=== PATIENT | female | born 1950 | race Caucasian/White ===

== ENCOUNTER → 2020-01-06 | Outpatient (CLI) | payer MEDICARE | LOC: CARD 09:49 | PROVIDERS: ATTEND Internal Medicine Interventional Cardiology | DX: R07.2 Precordial pain (principal); E78.01 Familial hypercholesterolemia; I10 Essential (primary) hypertension; E11.9 Type 2 diabetes mellitus without complications; Z72.0 Tobacco use | CPT/HCPCS: 93306 ==

== ENCOUNTER → 2020-01-12 | Outpatient (CLI) | payer MEDICARE ==
[~2020-01-12] VITALS: Ht 168 cm; Wt 73.0 kg
[~2020-01-12] MED LIST: CATHETER FLUSH 10 ML SYR IV PRN; REGADENOSON 0.4 MG/5 ML SYR (LEXISCAN) IV ONE
[2020-01-13 16:28] VITALS: BP 151/70
--- NOTE | 2020-01-13 16:28 | Cardiology Stress Test Report ---
Stress Test Report Type of NM Stress Test: Test Type: LEXISCAN 0.4MG/5ML Date of Procedure/Referring: Date of Procedure: January 12, 2020 PCP Phyllis Strange MD Admitting Physician Nikki Nieto MD Indications: Chest pain, diabetes Baseline Heart Rate: 53 Baseline Blood Pressure: Blood Pressure Systolic: 151 Blood Pressure Diastolic: 70 Baseline EKG: Baseline EKG: Sinus rhythm Summary & Conclusion: Summary: The patient was brought to the stress lab after informed consent was taken. Stress test was performed according to the Lexiscan protocol. 0.4 mg of IV Lexiscan was given. Low-grade exercise was performed. Baseline EKG showed sinus rhythm at 53 BPM, blood pressure 151/70 mmHg. Patient did not have any chest pain, arrhythmias or ST segment changes during the stress test. 10.83 mCi of Myoview were given for rest imaging and 30.3 mCi of Myoview given for stress imaging. Transient ischemic dilatation score 1.03, EF 71 percent. Normal wall motion. Normal myocardial perfusion imaging during rest and stress. Conclusion: Pharmacological stress test was negative for ischemia. Normal LV function with no wall motion abnormalities. Normal myocardial perfusion imaging during rest and stress. Phyllis STRANGE MD January 13, 2020 16:28
== END ==
LOC: CARD 08:01 → EDUNIT# 08:30
PROVIDERS: ATTEND Internal Medicine Interventional Cardiology
DX: R07.2 Precordial pain (principal); E78.01 Familial hypercholesterolemia; I10 Essential (primary) hypertension; E11.9 Type 2 diabetes mellitus without complications; Z72.0 Tobacco use
CPT/HCPCS: 78452; 93017

== ENCOUNTER → 2022-05-23 | Outpatient (CLI) | payer MEDICARE | LOC: CARD 11:22 | PROVIDERS: ATTEND Internal Medicine Cardiovascular Disease | DX: I35.0 Nonrheumatic aortic (valve) stenosis (principal); I11.9 Hypertensive heart disease without heart failure; I25.10 Atherosclerotic heart disease of native coronary artery without angina pectoris; I49.9 Cardiac arrhythmia, unspecified | CPT/HCPCS: 93225; 93226; 93306 ==

== ENCOUNTER 2022-07-02 11:00 | Day surgery (SDC) | payer MEDICARE ==
[~2022-07-02] VITALS: Ht 167.6 cm; Wt 75.5 kg
[2022-07-02] VITALS (14 sets, daily range): BP systolic 155–217; BP diastolic 74–118
[2022-07-02 09:34] LABS: HEMATOCRIT 31 % (35-52); HEMOGLOBIN 10.5 g/dL (11.5-16.0); MEAN CORPUSCULAR HEMOGLOBIN 32 pg (25-34); MEAN CORPUSCULAR HGB CONC 34 g/dL (32-36); MEAN CORPUSCULAR VOLUME 93 fL (80-99); MEAN PLATELET VOLUME 9.7 fL (9.0-12.2); PLATELET COUNT 250 10^3/uL (130-400)
[2022-07-02 09:46] LABS: PROTHROMBIN TIME PATIENT 13.4 SEC (12.2-14.7)
[2022-07-02 09:50] LABS: ALBUMIN 3.4 GM/DL (3.2-4.5); BILIRUBIN,TOTAL 0.7 MG/DL (0.1-1.0); CALCIUM 9.3 MG/DL (8.5-10.1); CREATININE SERUM 1.91 MG/DL (0.60-1.30); POTASSIUM 4.6 MMOL/L (3.6-5.0); TOTAL PROTEIN 6.6 GM/DL (6.4-8.2)
--- NOTE | 2022-07-02 09:50 | Diagnostic Imaging Report ---
INDICATION: Sick sinus syndrome, pre-pacemaker placement. Frontal chest obtained at 09:31 a.m. FINDINGS: Heart is borderline in size. Mediastinal silhouette is unremarkable. There is some linear scarring or atelectasis in the left upper lobe. Lungs are otherwise clear. There is no pneumothorax or pleural fluid. IMPRESSION: Borderline heart size. There is some linear scarring or atelectasis in left upper lobe. There is no other significant finding. Dictated by: Dictated on workstation # [id number]
--- NOTE | 2022-07-02 09:51 | Cardiac Procedure Note-CS/ASA ---
Pre-Procedure Note Pre-Op Procedure Note Date of Available H&P: Jun 23, 2022 Date H&P Reviewed: Jul 02, 2022 Time H&P Reviewed: :30 History & Physical: H&P Reviewed, Patient Examed, No changes noted Pre-Operative Diagnosis: Sinus node dysfunction Conscious Sedation Pre-Proced Time 09:30 ASA Score 3 For ASA 3 and 4: Consider anesthesia and medical clearance. Also, for patients with a history of failed moderate sedation consider anesthesia. Airway Lungs Heart ASA score ASA 1: a normal healthy patient ASA 2: a patient with a mild systemic disease (mid diabetes, controlled hypertension, obesity ASA 3: a patient with a severe systemic disease that limits activity (angina, COPD, prior Myocardial infarction) ASA 4: a patient with an incapacitating disease that is a constant threat to life (CHF, renal failure) ASA 5: a moribund patient not expected to survive 24 hrs. (ruptured aneurysm) ASA 6: a declared brain- patient whose organs are being harvested. For emergent operations, add the letter E after the classification Mallampati Classification Grade 3 Sedation Plan Analgesia, Amnesia, Plan communicated to team members, Discussed options with patient/fam, Discussed risks with patient/fam The patient is an appropriate candidate to undergo the planned procedure, sedation, and anesthesia. The patient immediately re-assessed prior to indication. DEZ LONG MD Jul 02, 2022 09:51
[~2022-07-02 11:00] MED LIST changes: +A/C/1TAB3 PO; +BIOT10005 PO; +CALC-250 PO; -CATHETER FLUSH 10 ML SYR IV PRN; +FERR-84 PO; +FOLI0.8T4 PO; +HEParin (CATH LAB) 1,000 ML IV ONE; +HYDR100T27 PO; +INSU100I34 SQ; +KRIL500C PO; +LACT1CAP39 PO; +LIDOCAINE 1% INJ 30 ML (XYLOCAINE) VIAL ONE; +LORA-404 PO; +MELA1TAB20 PO; +NORMAL SALINE 250 ML ONE; +NS IV 1000 ML 1,000 ML IV ONE; +NS IV 1000 ML 2,000 ML ONE; +PREN-37 PO; -REGADENOSON 0.4 MG/5 ML SYR (LEXISCAN) IV ONE; +SIMV40TA25 PO; +VANCOMYCIN 1000 MG/VIAL ONE; +VANCOMYCIN INJECTION 1,000 MG in NS (IVPB) 250 ML IV ONE
[2022-07-02] MEDS ORDERED: fentaNYL INJ 100 MCG/2 ML AMP ONE ×2 (11:06→12:22)
[2022-07-02] MEDS ORDERED: MIDAZOLAM 5 MG/5 ML (VERSED) VIAL ONE (11:06)
[2022-07-02] MEDS ORDERED: MIDAZOLAM 2 MG/2 ML (VERSED) VIAL ONE ×2 (12:23→12:36)
[2022-07-02] MEDS ORDERED: LIDOCAINE 1% INJ 20 ML VIAL ONE (12:23)
[2022-07-02] MEDS ORDERED: PATIENT MAY USE OWN MEDS, ALL PO SCH (13:30)
[2022-07-02] MEDS ORDERED: NS IV 1000 ML 1,000 ML IV SCH (13:30)
--- NOTE | 2022-07-02 13:35 | Permanent Pacemaker Implant ---
Dual Chamber Pacemaker Implant PROCEDURE PHYSICIAN: Dez Dean DUAL CHAMBER PACEMAKER IMPLANTATION: DATE OF PROCEDURE: 07/02/22 PREOPERATIVE DIAGNOSIS: Syncope, sinus node dysfunction POSTOPERATIVE DIAGNOSIS: Syncope, sinus node dysfunction HISTORY: 72-year-old lady with history of syncope, had heart monitor showing multiple pauses with syncope. Has underlying sinus node dysfunction. dual-chamber permanent pacemaker was recommended. PROCEDURE PERFORMED: 1. Dual-chamber permanent pacemaker implantation. 2. Fluoroscopy. 3. Central venous access. ANESTHESIA: Local anesthesia, conscious sedation. COMPLICATIONS: None. ESTIMATED BLOOD LOSS:20 mL. SPECIMENS: None. ORAL ANTICOAGULATION: None. FLUOROSCOPY TIME: FLUOROSCOPY DOSE: CONTRAST DOSE: PROCEDURE DETAILS: The patient is a 72 female and after all of the patients questions were answered, the patient was brought to the EP Lab. The patient's left chest was prepped and draped in sterile fashion. A 2 inch horizontal incision was made 1 cm below the clavicle and dissection carried down to the pectoralis fascia. Using the modified Seldinger technique and under fluoroscopy guidance, the anterior aspect of the left axillary vein was accessed 2 times. The J wires were secured to the drapes with a mosquito clamp. A 7-Urdu sheath was introduced over one of the J-wires. The RV lead was then inserted. The RV lead was directed across the tricuspid valve to the apical septal portion of the right ventricle. The position was checked in LITHUANIAN and SPANN views. The screw was deployed and the lead connected to the applications programmer analyst. Close sensing and pacing thresholds were obtained. Diaphragmatic pacing was ruled out. The lead was secured with 2-0 silk ties to the underlying muscle and fascia. Next, a 7-Urdu sheath was introduced through the remaining J-wire. An atrial lead was then introduced and guided to the level of the right appendage. The screw was deployed and the lead was connected to the interrogator. Good sensing and pacing thresholds were obtained. Diaphragmatic pacing was ruled out. The leads were secured with 2-0 silk ties to the underlying muscle and fascia. The leads were connected to the device in a hermetic fashion. The device and leads were placed in the pocket. Aggressive irrigation with saline solution was done. The device was secured to the underlying muscle and fascia with a 2-0 silk tie. interrogation of the device revealed good integrity of all the leads with good connections The wound was then closed using 2 layers. The first layer was interrupted 2-0 absorbable Vicryl suture. The last layer was a single subcuticular layer with 4- 0 Vicryl suture. Half inch Steri-Strips and a small dressing were then applied to the wound. The patient tolerated the procedure well and was returned to the recovery room in stable condition with stable vital signs. DEVICE INFORMATION: BANDAR XT DR MRI SERIAL [id number] RA LEAD: [id number] RV LEAD: [id number] PER-OPERATIVE DEVICE INTERROGATION: Good sensing and capture IMMEDIATE POSTOPERATIVE DEVICE INTERROGATION: Right atrium, bipolar, threshold 1 ms at 2 V, impedance 456, P wave 1.5 mV Right ventricle bipolar, threshold 0.4 ms at 2 V impedance 770, R waves 5 mV Post implant Atrial lead P wave 1.5 mV, impedance 418, pacing threshold 1.75 at 0.5 ms Right ventricle R wave 5 mV, pacing impedance 646, pacing threshold 2 A0.4 ms PLAN: The patient transferred to the ICU. We will continue with two more doses of IV antibiotics. We will check a chest x-ray and interrogate the device in the morning. The patient will continue on oral antibiotics for 5 days. CONCLUSION: Successful implantation of dual-chamber pacemaker with no complication FINAL DIAGNOSIS: Sinus node dysfunction Syncope Bradycardia Hypertension DEZ DEAN MD Jul 02, 2022 13:35
[2022-07-02] MEDS ORDERED: LORazepam 0.5 MG (ATIVAN) TABLET PO PRN (13:45)
[2022-07-02] MEDS ORDERED: meTOprolol 5 MG/5 ML (LOPRESSOR) VIAL ONE (13:49)
[2022-07-02] MEDS ORDERED: ceFAZolin INJECTION 1,000 MG in NS (IVPB) 50 ML IV SCH (15:30)
[2022-07-02] MEDS: HYDRALAZINE 50 MG TABLET PO SCH ×2 (16:01→20:02)
--- NOTE | 2022-07-02 16:33 | Diagnostic Imaging Report ---
INDICATION: Status post pacemaker placement. COMPARISON: 07/02/2022. FINDINGS: Single frontal radiographic view of the chest was obtained and demonstrates a stable cardiac silhouette. The pulmonary vasculature is now slightly prominent. The pulmonary interstitium is also slightly diffusely prominent. There may be trace right basilar effusion. No pneumothorax is seen on either side. A left-sided dual lead pacemaker is now present. Osseous structures show no acute abnormalities. IMPRESSION: 1. New left-sided dual-lead pacemaker. No pneumothorax. 2. Mild vascular congestion with probable interstitial pulmonary edema and small right basilar effusion. Dictated by: Dictated on workstation # [id number]
[2022-07-02] MEDS: oxyCODONE/APAP 5/325MG (PERCOCET 5) TABLET PO PRN (16:36)
[2022-07-02] MEDS ORDERED: meTOprolol 5 MG/5 ML (LOPRESSOR) VIAL IV NR (18:30)
[2022-07-02] MEDS: amLODIPine 5 MG (NORVASC) TAB PO SCH (18:37)
[2022-07-02] MEDS ORDERED: SIMVASTATIN 40 MG TABLET PO SCH (21:00)
[2022-07-02] MEDS ORDERED: BASAGLAR 100 UNIT/ML SQ SCH (21:00)
[2022-07-02] MEDS ORDERED: KRILL OIL PO SCH (21:00)
[2022-07-03] VITALS: BP 171/72
[2022-07-03] MEDS: oxyCODONE/APAP 5/325MG (PERCOCET 5) TABLET PO PRN ×2 (01:53→07:56)
[2022-07-03 04:00] VITALS: BP 150/73
[2022-07-03] MEDS ORDERED: ATOR20TA49 PO (07:20)
[2022-07-03] MEDS ORDERED: AMLO-250 PO (07:20)
--- NOTE | 2022-07-03 07:21 | Discharge Inst-Post CATH ---
Discharge Inst-CATH/EP Problems Reviewed?: Yes Post Cardiac Cath/EP D/C Inst Follow Up/Plan Appointment with Dr Dean next week <b>CARDIAC CATH/EP PROCEDURE DISCHARGE INSTRUCTIONS</b> ACTIVITY * Go Home directly and rest. * Limit activity of the leg (or wrist if it was used) for 7 days including aerobics, swimming, jogging, bicycling, etc. * Restrict stair-climbing for 7 days if possible, if not, climb up with your non-cath leg, then bring together on the same step. * Avoid lifting, pushing, pulling or excessive movement of the affected extremity for 7 days. * Customary sexual activity may be resumed after 2 days-use caution not to use a position that strains or causes pain to the affected extremity. * No driving for 24 hours. * NO SMOKING. * Avoid straining for bowel movements for 7 days. * Gentle walking on level ground is allowed. * Returning to work will depend on the type of procedure and the results. Your doctor will discuss this with you. CALL YOUR DOCTOR FOR ANY OF THE FOLLOWING: *If bleeding from the puncture site occurs- Apply gentle pressure to site with clean cloth and call your doctor or EMS. * If a knot or lump forms under the skin, increases in size, or causes pain. * If bruising appears to be worsening or moving further down your leg instead of disappearing. * Temperature above 101 F. CARE OF YOUR GROIN INCISION; * Bruising or purple discoloration of the skin near the puncture site is common. * You may shower only, no bathtub bathing for 5 days. Be careful to avoid slipping as your leg may feel stiff. * If a closure device was used on your femoral artery, please see the attached guide regarding care of the device and your leg. * Leave dressing on FOR 24 hours. CARE OF YOUR WRIST INCISION; * Bruising or purple discoloration of the skin near the puncture site is common. * You may shower. * DO NOT submerge wrist. * Leave dressing on FOR 24 hours. DEZ DEAN MD Jul 03, 2022 07:21
[2022-07-03 07:25] VITALS: BP 149/67
[2022-07-03] MEDS: amLODIPine 5 MG (NORVASC) TAB PO SCH (07:52)
[2022-07-03] MEDS: HYDRALAZINE 50 MG TABLET PO SCH (07:54)
--- NOTE | 2022-07-03 08:33 | Cardiology Progress Note ---
Subjective Date Seen by Provider: Jul 03, 2022 Time Seen by Provider: 08:32 Subjective/Events-last exam Patient was seen at bedside, complaining of pain at the surgical site Objective-Cardiology Exam Last Set of Vital Signs Vital Signs 07/03/22 07:25 Temp 36.7 Pulse 61 Resp 20 B/P (MAP) 149/67 (94) Pulse Ox 98 O2 Delivery Room Air I&O Intake and Output 07/03/22 00:00 Intake Total 200 ml Output Total 200 ml Balance 0 ml Intake Oral 200 ml Output Urine Total 200 ml General: Alert, Oriented X3, Cooperative HEENT: Atraumatic, PERRLA Neck: Supple, No JVD, No Thyromegaly Lungs: Clear to Auscultation, Normal Air Movement Heart: Regular Rate, Normal S1, Normal S2, No Murmurs Abdomen: Normal Bowel Sounds, Soft, No Tenderness, No Hepatosplenomegaly, No Masses Extremities: No Clubbing, No Cyanosis, No Edema, Normal Pulses, No Tenderness/Swelling Skin: No Rashes, No Breakdown, No Significant Lesion Neuro: Normal Gait, Normal Speech, Strength at 5/5 X4 Ext, Normal Tone, Sensation Intact Psych/Mental Status: Mental Status NL, Mood NL Results Lab Laboratory Tests 07/02/22 09:26 A/P-Cardiology Admission Diagnosis Syncope Sinus node dysfunction Permanent pacemaker Hypertension Hyperlipidemia. Assessment/Plan Syncope, sinus node dysfunction Status post dual-chamber pacemaker implantation on July 03, 2022. Will interrogate pacemaker today and planning for discharge Hypertension, adding amlodipine, continue on hydralazine and monitor tolerance and response Hyperlipidemia, switching simvastatin to Lipitor. Monitor lipids Diabetes mellitus, followed and managed by primary care physician Chronic renal insufficiency, cannot tolerate IRASEMA inhibitor and/or ARB DEZ LONG MD Jul 03, 2022 08:33
[2022-07-03 10:31] VITALS: BP 149/67
== END 2022-07-03 09:58 | disposition home or self-care (01) ==
LOC: CATH 11:00 → CSD 14:10 → CATH 07-03 09:58
PROVIDERS: ATTEND Internal Medicine Cardiovascular Disease
DX: I49.5 Sick sinus syndrome (principal); R55 Syncope and collapse; I10 Essential (primary) hypertension; I65.29 Occlusion and stenosis of unspecified carotid artery; E78.5 Hyperlipidemia, unspecified; Z87.891 Personal history of nicotine dependence; Z98.1 Arthrodesis status; Z82.49 Family history of ischemic heart disease and other diseases of the circulatory system; Z79.899 Other long term (current) drug therapy
CPT/HCPCS: 33208; 71045; 80053; 82947 ×2; 85027; 85610; 85730; 87081; 93005 ×2; C1785; C1898 ×2; 36415

== ENCOUNTER → 2022-08-20 | Day surgery (SDC) | payer MEDICARE ==
[~2022-08-20] VITALS: Ht 167.6 cm; Wt 72.5 kg
[~2022-08-20] MED LIST changes: +AMLO-250 PO; +AMLO-251 PO; +ATOR20TA49 PO; +ATOR20TA66 PO; +DOBUTamine DRIP 250 ML IV ONE; +DOBUTamine DRIP 250 ML IV SCH; +DOPamine DRIP 250 ML IV ONE; +DOPamine DRIP 250 ML IV SCH; +ETOMIDATE IV SOLN 20 MG/10 ML VIAL IV ONE; +FURO40TA4 PO; +KETAMINE 50 MG/5 ML SYRINGE ONE; +MIDAZOLAM 5 MG/5 ML (VERSED) VIAL ONE; +NALOXONE 0.4 MG/ML 1 ML (NARCAN) VIAL ONE; +NOREPINEPHRINE 8 MG/250 ML 250 ML IV ONE; -NORMAL SALINE 250 ML ONE; +NS IV 1000 ML 1,000 ML IV SCH; +NS IV 1000 ML 1,000 ML ONE; +ONDANSETRON 4 MG/2 ML (SDV) Z0FRAN ONE; +PATIENT MAY USE OWN MEDS, ALL PO SCH; +PHENYLEPHRINE INJ 10 MG/ML (FOR PYXIS KITS ONLY) ONE; +SUCCINYLCHOLINE INJ 20 MG/1 ML 10 ML VIAL INJ ONE; +TRZ50T PO; -VANCOMYCIN 1000 MG/VIAL ONE; -VANCOMYCIN INJECTION 1,000 MG in NS (IVPB) 250 ML IV ONE; +ceFAZolin INJECTION 1,000 MG ONE; +ceFAZolin INJECTION 1,000 MG in NS (IVPB) 50 ML IV SCH; +fentaNYL INJ 100 MCG/2 ML AMP ONE; +methylPREDNISolone 125 MG (Solu-MEDROL) VIAL ONE; +proPOfol 200 MG/20 ML (DIPRIVAN) VIAL IV ONE
[2022-08-20 08:52] VITALS: BP 175/69
[2022-08-20 09:15] LABS: BILIRUBIN,URINE NEGATIVE (NEGATIVE); CLARITY,URINE SL CLOUDY; COLOR,URINE YELLOW; GLUCOSE, URINE (UA) TRACE (NEGATIVE); HEMATOCRIT 28 % (35-52); HEMOGLOBIN 9.6 g/dL (11.5-16.0); KETONES,URINE NEGATIVE (NEGATIVE); LEUKOCYTE ESTERASE ,URINE NEGATIVE (NEGATIVE); MEAN CORPUSCULAR HEMOGLOBIN 31 pg (25-34); MEAN CORPUSCULAR HGB CONC 35 g/dL (32-36); MEAN CORPUSCULAR VOLUME 90 fL (80-99); MEAN PLATELET VOLUME 9.5 fL (9.0-12.2); NITRITE,URINE NEGATIVE (NEGATIVE); PLATELET COUNT 225 10^3/uL (130-400); PROTEIN,URINE 3+ (NEGATIVE); WHITE BLOOD COUNT 6.9 10^3/uL (4.3-11.0)
[2022-08-20 09:31] LABS: INR 0.9 (0.8-1.4); PROTHROMBIN TIME PATIENT 13.1 SEC (12.2-14.7)
[2022-08-20 09:32] LABS: ALBUMIN 3.2 GM/DL (3.2-4.5); BILIRUBIN,TOTAL 0.7 MG/DL (0.1-1.0); CALCIUM 8.8 MG/DL (8.5-10.1); CREATININE SERUM 1.92 MG/DL (0.60-1.30); POTASSIUM 3.5 MMOL/L (3.6-5.0)
--- NOTE | 2022-08-20 09:53 | Diagnostic Imaging Report ---
INDICATION: Pacemaker lead placement PA chest obtained at 0849 a.m. compared to 07/02/2022. Heart is mildly enlarged. Pacemaker device is unchanged. There is no pneumothorax or pleural fluid or focal infiltrate IMPRESSION: Mild cardiomegaly. Unchanged pacemaker device with no pneumothorax or pleural fluid. Dictated by: Dictated on workstation # [id number]
[2022-08-20 09:58] LABS: AMORPHOUS SEDIMENT,UR FEW AMOR URATES /LPF; BACTERIA,URINE NEGATIVE /HPF; WBC,URINE 0-2 /HPF
--- NOTE | 2022-08-20 10:21 | Cardiac Procedure Note-CS/ASA ---
Pre-Procedure Note Pre-Op Procedure Note Date of Available H&P: Aug 20, 2022 Date H&P Reviewed: Aug 20, 2022 Time H&P Reviewed: :30 History & Physical: H&P Reviewed, Patient Examed, No changes noted Pre-Operative Diagnosis: Sinus node dysfunction Conscious Sedation Pre-Proced Time 09:30 ASA Score 3 For ASA 3 and 4: Consider anesthesia and medical clearance. Also, for patients with a history of failed moderate sedation consider anesthesia. Airway Lungs Heart ASA score ASA 1: a normal healthy patient ASA 2: a patient with a mild systemic disease (mid diabetes, controlled hypertension, obesity ASA 3: a patient with a severe systemic disease that limits activity (angina, COPD, prior Myocardial infarction) ASA 4: a patient with an incapacitating disease that is a constant threat to life (CHF, renal failure) ASA 5: a moribund patient not expected to survive 24 hrs. (ruptured aneurysm) ASA 6: a declared brain- patient whose organs are being harvested. For emergent operations, add the letter E after the classification Mallampati Classification Grade 3 Sedation Plan Analgesia, Amnesia, Plan communicated to team members, Discussed options with patient/fam, Discussed risks with patient/fam The patient is an appropriate candidate to undergo the planned procedure, sedation, and anesthesia. The patient immediately re-assessed prior to indication. DEZ LONG MD Aug 20, 2022 10:21
--- NOTE | 2022-08-20 14:48 | Anesthesia-Procedure Note ---
Procedures/Interventions Procedure Start/Stop/Diagnosis Date of Procedure: Aug 20, 2022 Start Time: 13:37 Referring Physician: Dianne Preprocedural Diagnosis: Pericardial tampanode Stop Time: 14:33 Additional Procedures Procedures Called to [facility] to help with sedation of patient with suspected of pericardial tamponade. Patient given 4mg zofran, 50mg propofol, 300 mcg neosynephrine, 30 mg Ketamine total for the case. Care to [facility] staff. KELLI POOLE CRNA Aug 20, 2022 14:48
--- NOTE | 2022-08-20 14:48 | Cardiac Procedure Note-KU ---
Cardiology Procedures Date of Procedure 08/20/22 PERICARDIOCENTESIS INDICATION: Pericardial effusion with tamponade. PROCEDURE: This was an emergency procedure after the patient developed a pericardial effusion with probable tamponade following pacemaker lead repositioning. The patient was prepped and draped in the usual sterile fashion. I initially attempted to gain access to the pericardial space using a micropuncture needle from the subxiphoid approach but the needle would not reach the pericardial space. I then used a long 18-gauge pericardiocentesis needle and was able to enter the pericardial space. A standard J-wire was then inserted through the needle. Fluoroscopy confirmed pericardial location of the wire. The wire was removed and a 5 Panamanian sheath was inserted over the wire. A pigtail catheter was then inserted over the wire and the wire was removed. The pigtail catheter was hooked up to a pressure transducer. Which showed a pressure of approximately 1 mmHg with no pulsations to suggest intracardiac location. Approximately 30 mL of bloody fluid was removed by manual aspiration. The catheter was then attached to a vacuum bottle. A sterile dressing was applied. IMPRESSION: 1. Status post successful emergency pericardiocentesis from the subxiphoid approach. A 5 Panamanian pigtail catheter was left in place in the pericardial space attached to a vacuum bottle. Certain portions of this document may have been dictated utilizing voice recognition technology. Inherent to this technology, typographical and grammatical errors may exist. As much as I am diligent to identify and correct these mistakes, some errors may remain in the document. HENRIK GARCIA JR, MD Aug 20, 2022 14:48
--- NOTE | 2022-08-20 14:53 | Anesthesia-General Post-Op ---
MAC Patient Condition Mental Status/LOC: Same as Preop Cardiovascular: Satisfactory Nausea/Vomiting: Absent Respiratory: Satisfactory Pain: Controlled Complications: Absent Post Op Complications Complications None Follow Up Care/Instructions Patient Instructions None needed. Anesthesiology Discharge Order Discharge Order Patient is doing well, no complaints, stable vital signs, no apparent adverse anesthesia problems. No complications reported per nursing. KELLI POOLE CRNA Aug 20, 2022 14:53
--- NOTE | 2022-08-20 15:20 | Anesthesia-Procedure Note ---
Procedures/Interventions Procedure Start/Stop/Diagnosis Date of Procedure: Aug 20, 2022 Start Time: 15:02 Referring Physician: Dianne Stop Time: 15:13 Intubation RSI: Yes 100% pre-Ox, [id number]: Yes Intubation Method: orotracheal Videoscope used: Yes Grade View: 1 Medications: Etomidate (10), Succinylcholine (100) Mask Ventilation: positive Positive End Tide CO2: Yes Breath Sounds after Intubation: bilateral-equal ETT Securred @ (cm): 22 Intubated with ease: Yes Intubation Complications: no complications Progress Patient intubated at request of Dr. Dean for transport. Intubated with ease, + color change on etco2. Care to [facility] staff KELLI POOLE CRNA Aug 20, 2022 15:20
--- NOTE | 2022-08-20 15:24 | Cardiac Procedure Note-KU ---
Cardiology Procedures Date of Procedure 08/20/22 Pacemaker lead repositioning: Brief history 72-year-old lady with history of severe bradycardia, sinus node dysfunction, labile blood pressure with hypertension, history of chest pain. Had a pacemaker placed in June 2022 and has been functioning normally, last checkup was done last week showing that the ventricular lead has lost sensitivity and capture. It appeared that it has moved. Chest x-ray showed the lead still in the same place but there is no capture or no R wave. She was scheduled for lead repositioning. Procedure note: After explaining the procedure to the patient and obtaining a consent, patient was placed on the cardiac catheterization laboratory, skin was prepped in a sterile fashion, skin incision was made and the device was retrieved. I retrieved the and evaluated the device appeared to be all secured and connected well. I disconnected the ventricular lead and tested and has no sensing or capture. Retracted the device and repositioned it, it took about 6 spots using the apex, lower septum, mid septum and upper septum and even trying by the tricuspid valve position without good sensing and capture activity lastly I was able to get a good position with good sensing and capture activity. The device was attached to the ventricular lead and the lead was secured again. Landen pouch was used then the device was placed back in the pocket and the pocket was closed on 2 layers. Patient was noted to become hypotensive during closure of the device, I suspected pericardial effusion, attempted pericardiocentesis after evaluating echo showing small amount of pericardial fluid, echo was done showing some improvement, pigtail catheter was placed in the pericardial space, patient still hypotensive, she has change in mental status. Lethargic. Decided to proceed with intubation to protect her airways and she is on dopamine and dobutamine drip. Conclusion Successful repositioning of ventricular lead of the pacemaker device Hospital course Patient will be transferred to a tertiary care center for evaluation she will require cardiothoracic surgery support. I discussed the management with Dr. Rodriguez, he will work on arranging for a bed for her, most of the hospital around us are on diversion. Final diagnosis Hypotensive shock Sinus node dysfunction Chest pain Chronic kidney disease DEZ LONG MD Aug 20, 2022 15:24
== END ==
LOC: CATH 08:05
PROVIDERS: ATTEND Internal Medicine Cardiovascular Disease
DX: T82.120A Displacement of cardiac electrode, initial encounter (principal); I31.4 Cardiac tamponade; E78.2 Mixed hyperlipidemia; I49.9 Cardiac arrhythmia, unspecified; I65.23 Occlusion and stenosis of bilateral carotid arteries; I12.9 Hypertensive chronic kidney disease with stage 1 through stage 4 chronic kidney disease, or unspecified chronic kidney disease; N18.9 Chronic kidney disease, unspecified; Y83.1 Surgical operation with implant of artificial internal device as the cause of abnormal reaction of the patient, or of later complication, without mention of misadventure at the time of the procedure; Z87.891 Personal history of nicotine dependence
CPT/HCPCS: 33017; 33215; 71045; 80053; 81000; 85027; 85610; 85730; 87081; 93005; C8929; 36415; 93306